=== PATIENT | female | born 1980 | race Caucasian/White ===

== ENCOUNTER 2017-02-20 09:52 | Emergency (ER) | payer OTHER ==
[~2017-02-20] VITALS: Ht 172.7 cm; Wt 74.8 kg
[~2017-02-20 09:52] MED LIST: OXYC1TAB7 PO
--- NOTE | 2017-02-20 09:57 | PHYS DOC ---
Past Medical History Past Medical History: No Pertinent History Past Surgical History: No Surgical History Alcohol Use: Occasionally Drug Use: None Adult General Chief Complaint Chief Complaint: VAGINAL BLEEDING HPI HPI Patient is a 36 year old female presenting to the emergency department for evaluation of vaginal bleeding in early . He thinks her last period was sometime in mid to late December and she is with 3 prior normal vaginal deliveries. She is scheduled to see Dr. Reaves on Tuesday. She says that she is having some lower diffuse abdominal cramping but no fevers chills dysuria hematuria or vomiting. She does have some nausea. Review of Systems Review of Systems Constitutional: Denies fever or chills [] Cardiovascular: No additional information not addressed in HPI [] GI: + abdominal pain, nausea. No vomiting, bloody stools or diarrhea [] : Denies dysuria or hematuria [] Musculoskeletal: Denies back pain or joint pain [] Current Medications Current Medications Current Medications Medications (Trade) Dose Ordered Sig/Starr Start Time Stop Time Status Last Admin Dose Admin Ondansetron HCl (Zofran Odt) 4 mg 1X ONCE 02/20/17 10:15 02/20/17 10:16 DC 02/20/17 10:15 4 MG Allergies Allergies Allergies Coded Allergies Type Severity Reaction Last Updated Verified No Known Drug Allergies 01/03/16 No Physical Exam Physical Exam Constitutional: Well developed, well nourished, no acute distress, non-toxic appearance. [] Cardiovascular:Heart rate regular rhythm, no murmur [] Lungs & Thorax: Bilateral breath sounds clear to auscultation [] Abdomen: Bowel sounds normal, soft, no tenderness, no masses, no pulsatile masses. [] [employer]ICE PHOTOENGRAVING: Moderate amount of bleeding from os that feels slightly open internally. No significant pain on adnexa or cervix Current Patient Data Vital Signs Vital Signs Date Time Temp Pulse Resp B/P (MAP) Pulse Ox O2 Delivery O2 Flow Rate FiO2 02/20/17 10:04 98.5 75 20 149/70 (96) 98 Room Air 98.5 Lab Values Laboratory Tests Test 02/20/17 10:00 02/20/17 10:25 Urine Collection Type Unknown Urine Color Red Urine Clarity Bloody Urine pH 6.5 Urine Specific [place] 1.020 Urine Protein >=300 mg/dL (NEG-TRACE) Urine Glucose (UA) Negative mg/dL (NEG) Urine Ketones (Stick) Negative mg/dL (NEG) Urine Blood Large (NEG) Urine Nitrite Negative (NEG) Urine Bilirubin Negative (NEG) Urine Urobilinogen Dipstick 0.2 mg/dL (0.2 mg/dL) Urine Leukocyte Esterase Trace (NEG) Urine RBC Tntc /HPF (0-2) Urine WBC Rare /HPF (0-4) Urine Bacteria 0 /HPF (0-FEW) Urine Test Positive (NEG) White Blood Count 9.2 x10^3/uL (4.0-11.0) Red Blood Count 4.23 x10^6/uL (3.50-5.40) Hemoglobin 13.0 g/dL (12.0-15.5) Hematocrit 38.7 % (36.0-47.0) Mean Corpuscular Volume 91 fL (79-100) Mean Corpuscular Hemoglobin 31 pg (25-35) Mean Corpuscular Hemoglobin Concent 34 g/dL (31-37) Red Cell Distribution Width 13.3 % (11.5-14.5) Platelet Count 287 x10^3/uL (140-400) Neutrophils (%) (Auto) 65 % (31-73) Lymphocytes (%) (Auto) 21 % (24-48) L Monocytes (%) (Auto) 12 % (0-9) H Eosinophils (%) (Auto) 2 % (0-3) Basophils (%) (Auto) 1 % (0-3) Neutrophils # (Auto) 6.0 x10^3uL (1.8-7.7) Lymphocytes # (Auto) 1.9 x10^3/uL (1.0-4.8) Monocytes # (Auto) 1.1 x10^3/uL (0.0-1.1) Eosinophils # (Auto) 0.2 x10^3/uL (0.0-0.7) Basophils # (Auto) 0.1 x10^3/uL (0.0-0.2) Maternal Serum HCG Beta Subunit 29640 mIU/mL (0-5) H Sodium Level 136 mmol/L (136-145) Potassium Level 3.8 mmol/L (3.5-5.1) Chloride Level 102 mmol/L (98-107) Carbon Dioxide Level 26 mmol/L (21-32) Anion Gap 8 (6-14) Blood Urea Nitrogen 10 mg/dL (7-20) Creatinine 0.8 mg/dL (0.6-1.0) Estimated GFR (Cockcroft-Gault) 80.7 BUN/Creatinine Ratio 13 (6-20) Glucose Level 102 mg/dL (70-99) H Calcium Level 9.3 mg/dL (8.5-10.1) Total Bilirubin 0.8 mg/dL (0.2-1.0) Aspartate Amino Transferase (AST) 14 U/L (15-37) L Alanine Aminotransferase (ALT) 24 U/L (14-59) Alkaline Phosphatase 39 U/L (46-116) L Total Protein 8.5 g/dL (6.4-8.2) H Albumin 4.0 g/dL (3.4-5.0) Albumin/Globulin Ratio 0.9 (1.0-1.7) L Laboratory Tests 02/20/17 10:25 Laboratory Tests 02/20/17 10:25 Microbiology 02/20/17 Wet Prep - Final, Complete Laboratory Tests Test 02/20/17 10:00 02/20/17 10:25 Urine Collection Type Unknown Urine Color Red Urine Clarity Bloody Urine pH 6.5 Urine Specific [place] 1.020 Urine Protein >=300 mg/dL (NEG-TRACE) Urine Glucose (UA) Negative mg/dL (NEG) Urine Ketones (Stick) Negative mg/dL (NEG) Urine Blood Large (NEG) Urine Nitrite Negative (NEG) Urine Bilirubin Negative (NEG) Urine Urobilinogen Dipstick 0.2 mg/dL (0.2 mg/dL) Urine Leukocyte Esterase Trace (NEG) Urine RBC Tntc /HPF (0-2) Urine WBC Rare /HPF (0-4) Urine Bacteria 0 /HPF (0-FEW) Urine Test Positive (NEG) White Blood Count 9.2 x10^3/uL (4.0-11.0) Red Blood Count 4.23 x10^6/uL (3.50-5.40) Hemoglobin 13.0 g/dL (12.0-15.5) Hematocrit 38.7 % (36.0-47.0) Mean Corpuscular Volume 91 fL (79-100) Mean Corpuscular Hemoglobin 31 pg (25-35) Mean Corpuscular Hemoglobin Concent 34 g/dL (31-37) Red Cell Distribution Width 13.3 % (11.5-14.5) Platelet Count 287 x10^3/uL (140-400) Neutrophils (%) (Auto) 65 % (31-73) Lymphocytes (%) (Auto) 21 % (24-48) L Monocytes (%) (Auto) 12 % (0-9) H Eosinophils (%) (Auto) 2 % (0-3) Basophils (%) (Auto) 1 % (0-3) Neutrophils # (Auto) 6.0 x10^3uL (1.8-7.7) Lymphocytes # (Auto) 1.9 x10^3/uL (1.0-4.8) Monocytes # (Auto) 1.1 x10^3/uL (0.0-1.1) Eosinophils # (Auto) 0.2 x10^3/uL (0.0-0.7) Basophils # (Auto) 0.1 x10^3/uL (0.0-0.2) Maternal Serum HCG Beta Subunit 73376 mIU/mL (0-5) H Sodium Level 136 mmol/L (136-145) Potassium Level 3.8 mmol/L (3.5-5.1) Chloride Level 102 mmol/L (98-107) Carbon Dioxide Level 26 mmol/L (21-32) Anion Gap 8 (6-14) Blood Urea Nitrogen 10 mg/dL (7-20) Creatinine 0.8 mg/dL (0.6-1.0) Estimated GFR (Cockcroft-Gault) 80.7 BUN/Creatinine Ratio 13 (6-20) Glucose Level 102 mg/dL (70-99) H Calcium Level 9.3 mg/dL (8.5-10.1) Total Bilirubin 0.8 mg/dL (0.2-1.0) Aspartate Amino Transferase (AST) 14 U/L (15-37) L Alanine Aminotransferase (ALT) 24 U/L (14-59) Alkaline Phosphatase 39 U/L (46-116) L Total Protein 8.5 g/dL (6.4-8.2) H Albumin 4.0 g/dL (3.4-5.0) Albumin/Globulin Ratio 0.9 (1.0-1.7) L Laboratory Tests 02/20/17 10:25 Laboratory Tests 02/20/17 10:25 Microbiology 02/20/17 Wet Prep - Final, Complete EKG EKG [] Radiology/Procedures Radiology/Procedures Examination: Obstetric ultrasound less than 14 weeks History: History of bleeding in early Comparison: None available Findings: The uterus measures 10.2 x 1.4 x 5.1 cm. The right ovary measures 4.0 x 2.9 x 2.5 cm. There is a small cystic structure identified in the right ovary likely corpus luteal cyst. The left ovary measures 2.3 x 2.5 x 1.8 cm. Blood flow identified in the right and left ovaries. The cervix measures 3 cm in length. Intrauterine gestational sac is identified. A yolk sac is identified. The crown-rump length measures 0.42 cm corresponding to 6 weeks and 1 day. heart rate 93 bpm. Gestational age by ultrasound 6 weeks and 3 days. Date of delivery by ultrasound 10/13/2017. Findings: 1. Single living intrauterine identified. heart rate is 93 beats per minute. DICTATED and SIGNED BY: ANAYELI RUELAS MD DATE: 02/20/171124 Course & Med Decision Making Course & Med Decision Making Patient is hemodynamically stable and appears well with normal vital signs. She is likely miscarrying and I communicated this with her but told her there is no definitive answer as to what's going on so it is important that she calls her OB tomorrow morning to keep her follow-up and possibly see him earlier. Patient told to practice pelvic rest and to not exert herself and to come back to the ER sooner with any worsening pain bleeding dizziness or other general concerns. Patient aware and agreeable with plan and verbalized understanding of the above instructions. Dragon Disclaimer Dragon Disclaimer This electronic medical record was generated, in whole or in part, using a voice recognition dictation system. Departure Departure Impression: Primary Impression: Threatened Disposition: 01 HOME, SELF-CARE Condition: GOOD Referrals: NO PCP (PCP) MERE REAVES MD Patient Instructions: Threatened Miscarriage Additional Instructions: Intrauterine gestational sac is identified. A yolk sac is identified. The crown-rump length measures 0.42 cm corresponding to 6 weeks and 1 day. heart rate 93 bpm. Gestational age by ultrasound 6 weeks and 3 days. Date of delivery by ultrasound 10/13/2017. HCG = 57,837 TROY RANKIN DO Feb 20, 2017 09:57
[2017-02-20] MEDS ORDERED: ONDANSETRON ODT 4 MG TAB.RAPDIS. PO ONE (10:15)
[2017-02-20 10:23] LABS: BILIRUBIN,URINE NEGATIVE (NEG); GLUCOSE,URINE NEGATIVE (NEG); NITRITE,URINE NEGATIVE (NEG); PH,URINE 6.5; PROTEIN,URINE >=300 mg/dL (NEG-TRACE); UROBILINOGEN,URINE 0.2 mg/dL (0.2 mg/dL)
[2017-02-20 10:24] LABS: BACTERIA,URINE 0 /HPF (0-FEW); RBC,URINE TNTC /HPF (0-2); WBC,URINE RARE /HPF (0-4)
[2017-02-20 10:25] LABS: NEG OBC UR NEG; POS OBC UR POS
[2017-02-20 10:36] LABS: BASO # 0.1 x10^3/uL (0.0-0.2); BASO % 1 % (0-3); EOS % 2 % (0-3); HEMATOCRIT 38.7 % (36.0-47.0); LYMPH # 1.9 x10^3/uL (1.0-4.8); LYMPH % 21 % (24-48); MEAN CORPUSCULAR HEMOGLOBIN 31 pg (25-35); MEAN CORPUSCULAR HGB CONC 34 g/dL (31-37); MEAN CORPUSCULAR VOLUME 91 fL (79-100); MONO % 12 % (0-9); NEUT % 65 % (31-73); PLATELET COUNT 287 x10^3/uL (140-400); RED BLOOD COUNT 4.23 x10^6/uL (3.50-5.40); RED CELL DISTRIBUTION WIDTH 13.3 % (11.5-14.5); WHITE BLOOD COUNT 9.2 x10^3/uL (4.0-11.0)
[2017-02-20 10:47] LABS: CALCIUM 9.3 mg/dL (8.5-10.1); CREATININE 0.8 mg/dL (0.6-1.0); GFR 80.7; POTASSIUM 3.8 mmol/L (3.5-5.1)
[2017-02-20 10:54] LABS: ALBUMIN/GLOBULIN RATIO 0.9 (1.0-1.7); TOTAL BILIRUBIN 0.8 mg/dL (0.2-1.0); TOTAL PROTEIN 8.5 g/dL (6.4-8.2)
--- NOTE | 2017-02-20 11:33 | RAD ---
Examination: Obstetric ultrasound less than 14 weeks History: History of bleeding in early Comparison: None available Findings: The uterus measures 10.2 x 1.4 x 5.1 cm. The right ovary measures 4.0 x 2.9 x 2.5 cm. There is a small cystic structure identified in the right ovary likely corpus luteal cyst. The left ovary measures 2.3 x 2.5 x 1.8 cm. Blood flow identified in the right and left ovaries. The cervix measures 3 cm in length. Intrauterine gestational sac is identified. A yolk sac is identified. The crown-rump length measures 0.42 cm corresponding to 6 weeks and 1 day. heart rate 93 bpm. Gestational age by ultrasound 6 weeks and 3 days. Date of delivery by ultrasound 10/13/2017. Findings: 1. Single living intrauterine identified. heart rate is 93 beats per minute.
[2017-02-20 12:11] VITALS: BP 131/58
== END 2017-02-20 12:11 | disposition home or self-care (01) ==
LOC: ER 09:52
DX: O20.0 Threatened abortion (principal); Z3A.01 Less than 8 weeks gestation of pregnancy
CPT/HCPCS: 36415; 76801; 76817; 80053; 81001; 81025; 84702; 85027; 86850; 86900; 86901; 87086; 87491; 87591; 99285; Q0111; Q0162

== ENCOUNTER 2017-02-20 23:06 | Emergency (ER) | payer OTHER ==
[~2017-02-20] VITALS: Ht 170.2 cm; Wt 72.6 kg
[2017-02-21] MEDS ORDERED: ONDANSETRON PF 4 MG/2 ML VIAL. IV ONE (01:30)
[2017-02-21] MEDS ORDERED: IV NORMAL SALINE 1000ML BAG 1,000 ML IV ONE (01:30)
[2017-02-21 01:48] VITALS: BP 103/71
--- NOTE | 2017-02-21 02:01 | PHYS DOC ---
Past Medical History Past Medical History: No Pertinent History Past Surgical History: Other Additional Past Surgical Histo: LEEP 10/01 Alcohol Use: Occasionally Drug Use: None Adult General Chief Complaint Chief Complaint: VAGINAL BLEEDING HPI HPI 36-year-old female presenting to the emergency department as a return visit after with vaginal bleeding in early . The patient was seen earlier today and had an ultrasound with blood type. Intrauterine confirmed. Patient was discharged home. She comes back after having consistent vaginal bleeding without passage of tissue at this time. She feels mildly lightheaded intermittently. Onset today. Location tract. Duration intermittent. No alleviating or exacerbating factors present. Review of systems is negative for chest pain shortness of breath fevers chills cough. Negative for nausea vomiting. All other review of systems is negative unless otherwise noted in history of present illness. ED course: 36-year-old female presenting to the emergency department today with vaginal bleeding in the first trimester. Patient's ultrasound confirms intrauterine . Rh+. Otherwise unremarkable labs from previous earlier today. Here the patient is not tachycardic. IV established and IV fluids with nausea medications given. On reexamination she was feeling better. She was able walk in the emergency department without any difficulty unassisted and was subsequently discharged home to follow up with OB in the next 2-3 days. Review of Systems Review of Systems see above Family History Family History SEE ABOVE Current Medications Current Medications Current Medications Medications (Trade) Dose Ordered Sig/Starr Start Time Stop Time Status Last Admin Dose Admin Ondansetron HCl (Zofran) 4 mg 1X ONCE 02/21/17 01:30 02/21/17 01:31 DC 02/21/17 01:12 4 MG Sodium Chloride 1,000 ml @ 1,000 mls/hr 1X ONCE 02/21/17 01:30 02/21/17 02:07 DC 02/21/17 01:12 1,000 MLS/HR Allergies Allergies Allergies Coded Allergies Type Severity Reaction Last Updated Verified No Known Drug Allergies 01/03/16 No Physical Exam Physical Exam Constitutional: Well developed, well nourished, no acute distress, non-toxic appearance. [] HENT: Normocephalic, atraumatic, bilateral external ears normal, oropharynx moist, no oral exudates, nose normal. [] Eyes: PERRLA, EOMI, conjunctiva normal, no discharge. [] Neck: Normal range of motion, no tenderness, supple, no stridor. [] Cardiovascular:Heart rate regular rhythm, no murmur [] Lungs & Thorax: Bilateral breath sounds clear to auscultation [] Abdomen: Bowel sounds normal, soft, no tenderness, no masses, no pulsatile masses. [] Skin: Warm, dry, no erythema, no rash. [] Back: No tenderness, no CVA tenderness. [] Extremities: No tenderness, no cyanosis, no clubbing, ROM intact, no edema. [] Neurologic: Alert and oriented X 3, normal motor function, normal sensory function, no focal deficits noted. [] Psychologic: Affect normal, judgement normal, mood normal. [] Current Patient Data Vital Signs Vital Signs Date Time Temp Pulse Resp B/P (MAP) Pulse Ox O2 Delivery O2 Flow Rate FiO2 02/21/17 01:48 76 20 103/71 (82) 100 Room Air 02/20/17 23:36 99.0 99.0 EKG EKG [] Radiology/Procedures Radiology/Procedures [] Course & Med Decision Making Course & Med Decision Making Pertinent Labs and Imaging studies reviewed. (See chart for details) [] Dragon Disclaimer Dragon Disclaimer This electronic medical record was generated, in whole or in part, using a voice recognition dictation system. Departure Departure Impression: Primary Impression: Threatened Disposition: 01 HOME, SELF-CARE Condition: STABLE Referrals: NO PCP (PCP) MERE JENKINS MD Patient Instructions: Threatened Miscarriage Additional Instructions: Thank you for allowing us to participate in your care today. Followup with your OB in 3 days. Call your Primary Doctor tomorrow and inform them of your visit today. If you do not have a primary care provider you can ask for a list of our primary care providers. Return to the emergency department you have any new or concerning findings. This should be evaluated by the primary care physician and any necessary consulting services for continued management within a few days after discharge. Return to emergency room if you have any new or concerning symptoms including but not limited to fever, chills, nausea, vomiting, intractable pain, any new rashes, chest pain, shortness of air, uncontrolled bleeding, difficulty breathing, and/or vision loss. SKY MILLER MD Feb 21, 2017 02:01
== END 2017-02-21 02:06 | disposition home or self-care (01) ==
LOC: ER 23:06
DX: O20.0 Threatened abortion (principal)
CPT/HCPCS: 96361; 96374; 99284; J2405; J7030